=== PATIENT | male | born 1930 | race Caucasian/White ===

== ENCOUNTER 2017-05-31 14:36 | Inpatient (IN) | payer MEDICARE ==
[~2017-05-31] VITALS: Ht 179.1 cm; Wt 71.2 kg
[2017-05-31] MEDS ORDERED: ATOR10TA15 PO (15:24)
[2017-05-31] MEDS ORDERED: LOSA50TA2 PO (15:24)
[2017-05-31] MEDS ORDERED: GLUCTAB6 (15:25)
[2017-05-31] MEDS ORDERED: SODIUM CHLOR 0.9% 1000 ML INJ 1,000 ML IV SCH (15:25)
[2017-05-31] MEDS ORDERED: ASPI81CH CHEW (15:25)
[2017-05-31] MEDS ORDERED: OCUVTAB4 PO (15:25)
[2017-05-31] MEDS ORDERED: FINA5TAB2 PO (15:25)
[2017-05-31] MEDS ORDERED: TAMS0.4C4 PO (15:25)
[2017-05-31] MEDS ORDERED: PANTOPRAZOLE INJ 80 MG in SODIUM CHLORIDE 0.9% INJ 35 ML IV ONE (15:30)
[2017-05-31] MEDS ORDERED: SODIUM CHLORIDE 0.9% FLUSH 10 ML FLUSH IVF PRN (15:30)
--- NOTE | 2017-05-31 15:33 | PD ---
HPI Chief Complaint: GI Complaint Time Seen by Provider: 15:12 Travel History International Travel<30 days: No Contact w/Intl Traveler<30days: No Traveled to known affect area: No History of Present Illness HPI This 87-year-old male says he has noted some dark stools over the last few days. He's been having some frequent urination. He has been seeing Dr. Collins. He was recently started on finasteride. He has a history of a subtotal gastrectomy. He is not on any blood thinners. He denies any abdominal pain. He has not been feeling weak or dizzy. He does not use anti- inflammatory medication. He drinks a small glass of wine every other day PFSH Past Medical History ?: Not Social History Tobacco Use: No Allergies-Medications (Allergen,Severity, Reaction): Coded Allergies: Penicillin (Verified Allergy, Unknown, 05/31/17) Reported Meds & Prescriptions Reported Meds & Active Scripts Active Reported Glucosamine Chondroitin (Ywynjmyjssj-Vvbepwdixuz-Mmm C-) 1 Tab Tab Aspirin 81 Mg Chew 81 Mg CHEW DAILY Preservision Areds (Multiple Vitamins W/ Minerals) 1 Tab 1 Tab PO DAILY Finasteride 5 Mg Tab 5 Mg PO DAILY Do not crush. Tamsulosin (Tamsulosin HCl) 0.4 Mg Cap 0.4 Mg PO HS Atorvastatin (Atorvastatin Calcium) 10 Mg Tab 10 Mg PO HS Losartan-Hydrochlorothiazide 50-12.5 Mg Tab 1 Tab PO DAILY Review of Systems General / Constitutional: No: Fever, Chills Eyes: Positive: Blurred Vision (macular degeneration), No: Diploplia HENT: No: Headaches, Vertigo Cardiovascular: No: Chest Pain or Discomfort, Palpitations Respiratory: No: Cough, Shortness of Breath Gastrointestinal: Positive: Hematochezia, Changes in Bowel Habits, No: Nausea , Vomiting, Loss of Appetite Genitourinary: Positive: Frequency, Nocturia, No: Urgency Musculoskeletal: No: Myalgias, Arthralgias Skin: No Rash Neurologic: No: Weakness, Dizziness Hematologic/Lymphatic: No: Easy Bruising Physical Exam Narrative GENERAL: Well-developed male SKIN: Focused skin assessment warm/dry. HEAD: Atraumatic. Normocephalic. EYES: Pupils equal and round. No scleral icterus. No injection or drainage. ENT: No nasal bleeding or discharge. Mucous membranes pink and moist. NECK: Trachea midline. No JVD. CARDIOVASCULAR: Regular rate and rhythm. No murmur appreciated. RESPIRATORY: No accessory muscle use. Clear to auscultation. Breath sounds equal bilaterally. GASTROINTESTINAL: Abdomen soft, non-tender, nondistended. Hepatic and splenic margins not palpable. On rectal exam there are no masses. Stool is dark and guaiac positive MUSCULOSKELETAL: No obvious deformities. No clubbing. No cyanosis. No edema. NEUROLOGICAL: Awake and alert. No obvious cranial nerve deficits. Motor grossly within normal limits. Normal speech. PSYCHIATRIC: Appropriate mood and affect; insight and judgment normal. Data Data Orders Complete Blood Count With Diff (05/31/17 15:25) Comprehensive Metabolic Panel (05/31/17 15:25) Prothrombin Time / Inr (Pt) (05/31/17 15:25) Act Partial Throm Time (Ptt) (05/31/17 15:25) Urinalysis - C+S If Indicated (05/31/17 15:25) Type And Screen (05/31/17 15:25) Ecg Monitoring (05/31/17 15:25) Iv Access Insert/Monitor (05/31/17 15:25) Oximetry (05/31/17 15:25) Sodium Chlor 0.9% 1000 Ml Inj (Ns 1000 M (05/31/17 15:25) Sodium Chloride 0.9% Flush (Ns Flush) (05/31/17 15:30) Pantoprazole Inj (Protonix Inj) (05/31/17 15:30) Pantoprazole Inj (Protonix Inj) (05/31/17 15:30) MDM Medical Decision Making Medical Screen Exam Complete: Yes Emergency Medical Condition: Yes Medical Record Reviewed: Yes Differential Diagnosis Differential includes GI bleed, ulcer disease, gastritis Narrative Course Stool is black and guaiac positive. Diagnosis Primary Impression: GI bleed Pawan Villafana MD May 31, 2017 15:33
[2017-05-31 16:21] LABS: AUTOMATED NEUTROPHIL # 5.9 TH/MM3 (1.8-7.7); BASOPHIL % 0.4 % (0.0-2.0); EOSINOPHIL % 0.3 % (0.0-4.0); HEMATOCRIT 39.3 % (39.0-51.0); HEMO FLAGS DIFF FINAL; LYMPH % 19.6 % (9.0-44.0); LYMPHOCYTE # 1.5 TH/MM3 (1.0-4.8); MEAN CELL VOLUME 87.3 FL (80.0-100.0); MEAN CORPUSCULAR HEMOGLOBIN 28.7 PG (27.0-34.0); MEAN CORPUSCULAR HGB CONC 32.9 % (32.0-36.0); MONO % 6.8 % (0.0-8.0); NEUT % 72.9 % (16.0-70.0); PLATELET COUNT 159 TH/MM3 (150-450); RED BLOOD COUNT 4.49 MIL/MM3 (4.50-5.90); RED CELL DISTRIBUTION WIDTH 14.6 % (11.6-17.2); WHITE BLOOD COUNT 7.9 TH/MM3 (4.0-11.0)
[2017-05-31 16:36] LABS: CHLORIDE 107 MEQ/L (98-107); POTASSIUM 3.4 MEQ/L (3.5-5.1); SODIUM (NA) 142 MEQ/L (136-145)
[2017-05-31 16:40] LABS: APTT (PATIENT) 23.8 SEC (24.3-30.1); INTERNATIONAL NORMALIZED RATIO 0.9 RATIO; PROTHROMBIN TIME - PATIENT 10.2 SEC (9.8-11.6)
[2017-05-31 16:41] LABS: ANION GAP 7 MEQ/L (5-15); BICARBONATE 28.3 MEQ/L (21.0-32.0); BLOOD UREA NITROGEN 16 MG/DL (7-18)
[2017-05-31 16:44] LABS: ALT (GPT) 26 U/L (12-78); AST (GOT) 16 U/L (15-37); GLOMERULAR FILTRATION RATE 75 ML/MIN (>89)
[2017-05-31 16:46] LABS: TOTAL BILIRUBIN ADULT 1.6 MG/DL (0.2-1.0)
[2017-05-31 16:47] LABS: ALKALINE PHOSPHATASE 63 U/L (45-117)
[2017-05-31] MEDS: PANTOPRAZOLE INJ 80 MG in SODIUM CHLORIDE 0.9% INJ 100 ML IV SCH (16:54)
[2017-05-31 17:35] LABS: BLOOD, URINE NEG (NEG); GLUCOSE,URINE 100 mg/dL (NEG); KETONE, URINE NEG (NEG); NITRITE,URINE NEG (NEG); PH, URINE 5.5 (5.0-8.5)
--- NOTE | 2017-05-31 17:53 | PD ---
Data Data Orders Complete Blood Count With Diff (05/31/17 15:25) Comprehensive Metabolic Panel (05/31/17 15:25) Prothrombin Time / Inr (Pt) (05/31/17 15:25) Act Partial Throm Time (Ptt) (05/31/17 15:25) Urinalysis - C+S If Indicated (05/31/17 15:25) Type And Screen (05/31/17 15:25) Ecg Monitoring (05/31/17 15:25) Iv Access Insert/Monitor (05/31/17 15:) Oximetry (05/31/17 15:25) Sodium Chlor 0.9% 1000 Ml Inj (Ns 1000 M (05/31/17 15:25) Sodium Chloride 0.9% Flush (Ns Flush) (05/31/17 15:30) Pantoprazole Inj (Protonix Inj) (05/31/17 15:30) Pantoprazole Inj (Protonix Inj) (05/31/17 15:30) Labs Laboratory Tests Test 05/31/17 05/31/17 16:15 17:00 White Blood Count 7.9 TH/MM3 Red Blood Count 4.49 MIL/MM3 Hemoglobin 12.9 GM/DL Hematocrit 39.3 % Mean Corpuscular Volume 87.3 FL Mean Corpuscular Hemoglobin 28.7 PG Mean Corpuscular Hemoglobin 32.9 % Concent Red Cell Distribution Width 14.6 % Platelet Count 159 TH/MM3 Mean Platelet Volume 9.0 FL Neutrophils (%) (Auto) 72.9 % Lymphocytes (%) (Auto) 19.6 % Monocytes (%) (Auto) 6.8 % Eosinophils (%) (Auto) 0.3 % Basophils (%) (Auto) 0.4 % Neutrophils # (Auto) 5.9 TH/MM3 Lymphocytes # (Auto) 1.5 TH/MM3 Monocytes # (Auto) 0.5 TH/MM3 Eosinophils # (Auto) 0.0 TH/MM3 Basophils # (Auto) 0.0 TH/MM3 CBC Comment DIFF FINAL Differential Comment Prothrombin Time 10.2 SEC Prothromb Time International 0.9 RATIO Ratio Activated Partial 23.8 SEC Thromboplast Time Sodium Level 142 MEQ/L Potassium Level 3.4 MEQ/L Chloride Level 107 MEQ/L Carbon Dioxide Level 28.3 MEQ/L Anion Gap 7 MEQ/L Blood Urea Nitrogen 16 MG/DL Creatinine 0.95 MG/DL Estimat Glomerular Filtration 75 ML/MIN Rate Random Glucose 137 MG/DL Calcium Level 8.3 MG/DL Total Bilirubin 1.6 MG/DL Aspartate Amino Transf 16 U/L (AST/SGOT) Alanine Aminotransferase 26 U/L (ALT/SGPT) Alkaline Phosphatase 63 U/L Total Protein 6.7 GM/DL Albumin 3.4 GM/DL Urine pH 5.5 Urine Protein NEG mg/dL Urine Glucose (UA) 100 mg/dL Urine Ketones NEG mg/dL Urine Occult Blood NEG Urine Nitrite NEG Urine Bilirubin NEG Urine Leukocyte Esterase NEG MDM Supervised Visit with NIKOLAS: No Narrative Course Patient care assumed from Dr. Portillo at 1600. This is an 87-year-old male who appears well presents emergency department for evaluation of black tarry stools for the past week. Per Dr. Gonzales for large amount of guaiac positive black stool was observed on rectal exam per Dr. Portillo. Patient's counts are reassuring. He is not on anticoagulants. Discussed with the patient the ferry behind internal bleeding as we cannot tell when the bleeding stopped. I recommended for trending at a minimum. The patient is very high functioning and has plans for travel to [place] in 5 days and wonders if his treatment can be expedited. Knowing this save made a call to Dr. Alfredo who is willing to scope him in the morning after he is prepped tonight. Discussed with discussed with Dr. Louise who is agreeable for observation status. Diagnosis Primary Impression: GI bleed Admitting Information Admitting Physician Requests: Observation Condition: Stable Kwasi García MD May 31, 2017 17:53
[2017-05-31 17:54] LABS: COMMENT (UR) CULT NOT INDICATED; CULTURE IF INDICATED CULT NOT INDICATED; SQUAMOUS EPITHELIAL CELL URINE 0-5 /hpf (0-5); URINE COLOR YELLOW (YELLW/STRAW)
[2017-05-31] MEDS ORDERED: ACETAMINOPHEN 325 MG TAB PO PRN (18:00)
[2017-05-31] MEDS ORDERED: POTASSIUM PHOSPHATE INJ 30 MMOL in SODIUM CHLOR 0.9% 250 ML INJ 250 ML IV ONE (18:00)
[2017-05-31] MEDS ORDERED: ONDANSETRON HCL 4 MG/2 ML VIAL IVP PRN (18:00)
[2017-05-31 18:15] VITALS: BP 141/72; PULSE 60; O2SAT 99
[2017-05-31 19:11] VITALS: O2SAT 99
[2017-05-31 20:00] VITALS: BP 141/80; PULSE 60; RESP 20; TEMP 97.2; O2SAT 95
[2017-05-31 20:08] LABS: CHLORIDE 107 MEQ/L (98-107); POTASSIUM 3.4 MEQ/L (3.5-5.1); SODIUM (NA) 142 MEQ/L (136-145)
[2017-05-31 20:11] LABS: ANION GAP 8 MEQ/L (5-15); BLOOD UREA NITROGEN 14 MG/DL (7-18)
[2017-05-31 20:14] LABS: ALT (GPT) 23 U/L (12-78)
[2017-05-31 20:15] LABS: AST (GOT) 15 U/L (15-37); GLOMERULAR FILTRATION RATE 92 ML/MIN (>89)
[2017-05-31 20:16] LABS: TOTAL BILIRUBIN ADULT 1.4 MG/DL (0.2-1.0)
[2017-05-31 20:17] LABS: ALKALINE PHOSPHATASE 57 U/L (45-117)
[2017-05-31] MEDS: ATORVASTATIN 10 MG TAB PO SCH (23:42)
[2017-06-01] VITALS (18 sets, daily range): BP systolic 123–180; BP diastolic 67–102; PULSE 51–67; RESP 19–20; TEMP 96–98.5; O2SAT 91–99
[2017-06-01] MEDS: PANTOPRAZOLE INJ 80 MG in SODIUM CHLORIDE 0.9% INJ 100 ML IV SCH ×3 (02:18→21:30)
[2017-06-01 06:21] LABS: AUTOMATED NEUTROPHIL # 3.9 TH/MM3 (1.8-7.7); BASOPHIL % 0.1 % (0.0-2.0); EOSINOPHIL % 0.7 % (0.0-4.0); HEMO FLAGS DIFF FINAL; LYMPH % 29.8 % (9.0-44.0); LYMPHOCYTE # 1.9 TH/MM3 (1.0-4.8); MEAN CELL VOLUME 86.7 FL (80.0-100.0); MEAN CORPUSCULAR HEMOGLOBIN 28.7 PG (27.0-34.0); MEAN CORPUSCULAR HGB CONC 33.1 % (32.0-36.0); MONO % 8.5 % (0.0-8.0); NEUT % 60.9 % (16.0-70.0); PLATELET COUNT 122 TH/MM3 (150-450); RED BLOOD COUNT 3.69 MIL/MM3 (4.50-5.90); RED CELL DISTRIBUTION WIDTH 14.2 % (11.6-17.2); WHITE BLOOD COUNT 6.3 TH/MM3 (4.0-11.0)
[2017-06-01] MEDS ORDERED: PROPOFOL 200 MG/20 ML AMP IV ONE (07:40)
--- NOTE | 2017-06-01 08:18 | GIPROC ---
[facility] [address] [place] [address], [id number] EGD PROCEDURE REPORT EXAM DATE: 06/01/2017 PATIENT NAME: Preet Pena MR #: [id number] BIRTHDATE: 1930 ATTENDING: Jo Ann Renteria MD ORDER #: [id number] DIRECTOR SPECIAL EDUCATION: Geovanni Robles and Veda Kessler STATUS: inpatient INDICATIONS: The patient is a 87 yr old male here for an EGD due to anemia and melena PROCEDURE PERFORMED: EGD w/ control of bleeding MEDICATIONS: None and Per Anesthesia. TOPICAL ANESTHETIC: none CONSENT: The patient understands the risks and benefits of the procedure and understands that these risks include, but are not limited to: sedation, allergic reaction, infection, perforation and/or bleeding. Alternative means of evaluation and treatment include, among others: physical exam, x-rays, and/or surgical intervention. The patient elects to proceed with this endoscopic procedure. medical equipment was checked for proper function. Hand hygiene and appropriate measures for infection prevention was taken. After the risks, benefits and alternatives of the procedure were thoroughly explained, Informed consent was verified, confirmed and timeout was successfully executed by the treatment team. The patient was anesthetized with topical anesthesia and the Pentax [id number] endoscope was introduced through the mouth and advanced to the second portion of the duodenum. Retroflexed views revealed no abnormalities The gastroscope was then slowly withdrawn and removed. 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 The endoscopy was otherwise normal. ADVERSE EVENTS: There were no complications. IMPRESSIONS: 1. Anatomy C/W gastric bypass 2. 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 Normal endoscopy otherwise 4. Retroflexed views revealed no abnormalities RECOMMENDATIONS: 1. Anti-reflux regimen 2. Avoid NSAIDS 3. Follow H/H PATIENT CONDITION: stable DISPOSITION: Inpatient REPEAT EXAM: Return as needed for EGD if patient agrees and still anemic he will need colonoscopy and possible capsule endoscopy Jo Ann Renteria MD eSigned: Jo Ann Renteria MD 06/01/2017 8:18 AM cc:
[2017-06-01] MEDS: FINASTERIDE 5 MG TAB PO SCH (08:29)
[2017-06-01] MEDS: LOSARTAN 50 MG TAB PO SCH (08:29)
[2017-06-01] MEDS: HYDROCHLOROTHIAZIDE 12.5 MG CAP PO SCH (08:29)
[2017-06-01] MEDS ORDERED: NON-FORMULARY DRUG (Losartan-Hydrochlorothiazide 1 TAB) PO SCH (09:00)
--- NOTE | 2017-06-01 11:26 | EKG ---
Date Performed: 06/01/2017 Time Performed: 06:54:41 PTAGE: 87 years EKG: Normal Sinus rhythm Ventricular premature complexes Slight nonspecific intraventricular conduction delay Poor R-wave pro gression, cannot exclude old anteroseptal myocardial infarction The first degree AV block is new from the old tracing. PREVIOUS TRACING : 12/02/1998 15.15 DOCTOR: Malcolm Blank Interpretating Date/Time 06/01/2017 11:24:49
--- NOTE | 2017-06-01 14:05 | MB ---
cc: JAIRO SHORE M.D. DATE OF CONSULTATION 06/01/2017 DATE OF [address] Laya Louise REASON FOR REFERRAL Anemia, melena. Thank you for the consultation. This is a very pleasant 87-year-old gentleman who was in the ER because of significant dark stool over the last few days. The patient stated that he had black stool. He denies any bright red blood per rectum and he denied any other GI symptoms. He denied any dizziness, lightheaded. He had a colonoscopy many years ago and he had a subtotal gastrectomy at least 50 years ago. He denied any anti-inflammatory except aspirin. He has no other GI concerns. SOCIAL HISTORY Negative for tobacco. He drinks wine on a daily basis. ALLERGIES PENICILLIN REVIEW OF SYSTEMS All 12-points negative except HPI. MEDICATIONS Reviewed in the chart. REVIEW OF SYSTEMS All 12-points negative except HPI. PHYSICAL EXAMINATION Alert, oriented in no acute distress. VITAL SIGNS: Stable. HEENT: Pupils are round and reactive to light. NECK: Supple. CHEST: Clear to auscultation and percussion. CARDIAC: Regular rate and rhythm at this time. No murmur or gallop. ABDOMEN: Soft, nondistended, nontender. The patient has a midline surgical scar. RECTAL: Exam was performed in the ER so it was deferred, but according to the ER, no masses and dark stool positive for hemoccult. NEUROLOGIC: Alert, oriented x3 in no acute distress. No abnormality with "fine and gross movement. PSYCHOLOGIC: Psychologically appropriate. LABORATORY DATA White count 6.3, hemoglobin 10.6 today, yesterday was 12.9, platelets 122, INR 0.9. Liver function tests, total bilirubin 1.4, AST 15, ALT 23, alkaline phosphatase 57, albumin 3.1. ASSESSMENT/PLAN An 87-year-old gentleman with black tarry stool with anemia most likely upper GI bleed, could be peptic ulcer disease as he had anastomosis margin on AVM or even malignancy. I discussed with the patient doing upper endoscopy and he is agreeable to have it done. If this is negative, then the patient will need further evaluation with a capsule endoscopy and a colonoscopy that could be done as an outpatient. Meanwhile, we will continue supportive care and will make sure that the patient hemodynamically is stable and his hemoglobin is stable. MD DORA Olmstead /11:31 AM /1:08 PM
--- NOTE | 2017-06-01 14:06 | HHI.HP ---
[facility] Service [facility] Primary Care Physician Gary Darnell M.D. Admission Diagnosis GI bleeding Diagnoses: Chief Complaint: Bloody stools Travel History International Travel<30 Days: No Contact w/Intl Traveler <30 Da: No Traveled to Known Affected Are: No History of Present Illness Patient seen and evaluated in the ER due to CC of Dark stools and nausea for 3 days. 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 He takes a daily aspirin for "general health". He has not had any pain. he is now seen after GI eval and upper endoscopy. An AVM was cauterized. Hg has gone from 12.9 to 10.6 and the patient has seen more bloody stool this am. He is resting well. Review of Systems Constitutional: DENIES: Diaphoretic episodes, Fatigue, Fever, Weight gain, Weight loss, Chills, Dizziness, Change in appetite, Night Sweats Endocrine: DENIES: Heat/cold intolerance, Polydipsia, Polyuria, Polyphagia Eyes: DENIES: Blurred vision, Diplopia, Eye inflammation, Eye pain, Vision loss , Photosensitivity, Double Vision Ears, nose, mouth, throat: DENIES: Tinnitus, Hearing loss, Vertigo, Nasal discharge, Oral lesions, Throat pain, Hoarseness, Ear Pain, Running Nose, Epistaxis, Sinus Pain, Toothache, Odynophagia Respiratory: DENIES: Apneas, Cough, Snoring, Wheezing, Hemoptysis, Sputum production, Shortness of breath Cardiovascular: DENIES: Chest pain, Palpitations, Syncope, Dyspnea on Exertion , PND, Lower Extremity Edema, Orthopnea, Claudication Gastrointestinal: COMPLAINS OF: Black stools, DENIES: Abdominal pain, Bloody stools, Constipation, Diarrhea, Nausea, Vomiting, Difficulty Swallowing, Anorexia Musculoskeletal: COMPLAINS OF: Joint pain (OA), DENIES: Muscle aches, Stiffness, Joint Swelling, Back pain, Neck pain Integumentary: DENIES: Abnormal pigmentation, Nail changes, Pruritus, Rash Hematologic/lymphatic: DENIES: Bruising, Lymphadenopathy Immunologic/allergic: DENIES: Eczema, Urticaria Neurologic: DENIES: Abnormal gait, Headache, Localized weakness, Paresthesias, Seizures, Speech Problems, Tremor, Poor Balance Psychiatric: DENIES: Anxiety, Confusion, Mood changes, Depression, Hallucinations, Agitation, Suicidal Ideation, Homicidal Ideation, Delusions bloody stools Past Family Social History Past Medical History BPH HTN Hyperlipidemia Past Surgical History subtotal gastrectomy due to ulcers Appy Reported Medications Reviewed in the EMR, takes ASA for "health" Allergies: Coded Allergies: Penicillin (Verified Allergy, Unknown, 05/31/17) Active Ordered Medications reviewed in the EMR Family History Outlived everyone noncontributory Social History No tobacco or EToh lives with his Physical Exam Vital Signs Vital Signs Date Time Temp Pulse Resp B/P Pulse Ox O2 Delivery O2 Flow Rate FiO2 06/01/17 12:10 96.4 51 19 145/83 96 06/01/17 08:46 98.2 58 19 152/85 96 06/01/17 08:11 57 18 128/60 95 06/01/17 07:54 97.9 69 20 141/78 95 06/01/17 07:00 64 20 169/79 99 06/01/17 00:00 96.0 52 20 148/70 95 Automatic Cuff 05/31/17 20:00 97.2 60 20 141/80 95 05/31/17 19:11 99 05/31/17 18:15 60 141/72 99 Physical Exam GENERAL: This is a well-nourished, well-developed patient, calm, complaining of blood in stool this am SKIN: No rashes, ecchymoses or lesions. Cool and dry. HEAD: Atraumatic. Normocephalic. No temporal or scalp tenderness. EYES: Pupils equal round and reactive. Extraocular motions intact. No scleral icterus. No injection or drainage. ENT: Nose without bleeding, purulent drainage or septal hematoma. Throat without erythema, tonsillar hypertrophy or exudate. Uvula midline. Airway patent. NECK: Trachea midline. No JVD or lymphadenopathy. Supple, nontender, no meningeal signs. CARDIOVASCULAR: Regular rate and rhythm without murmurs, gallops, or rubs. RESPIRATORY: Clear to auscultation. Breath sounds equal bilaterally. No wheezes , rales, or rhonchi. GASTROINTESTINAL: Abdomen soft, non-tender, nondistended. No hepato-splenomegaly , or palpable masses. No guarding. MUSCULOSKELETAL: Extremities without clubbing, cyanosis, or edema. No joint tenderness, effusion, or edema noted. No calf tenderness. Negative Homans sign bilaterally. NEUROLOGICAL: Awake and alert. Cranial nerves II through XII intact. Motor and sensory grossly within normal limits. Five out of 5 muscle strength in all muscle groups. Normal speech. Laboratory Laboratory Tests Test 05/31/17 05/31/17 05/31/17 06/01/17 16:15 17:00 19:48 04:55 White Blood Count 7.9 6.3 Red Blood Count 4.49 3.69 Hemoglobin 12.9 10.6 Hematocrit 39.3 32.0 Mean Corpuscular Volume 87.3 86.7 Mean Corpuscular Hemoglobin 28.7 28.7 Mean Corpuscular Hemoglobin 32.9 33.1 Concent Red Cell Distribution Width 14.6 14.2 Platelet Count 159 122 Mean Platelet Volume 9.0 8.9 Neutrophils (%) (Auto) 72.9 60.9 Lymphocytes (%) (Auto) 19.6 29.8 Monocytes (%) (Auto) 6.8 8.5 Eosinophils (%) (Auto) 0.3 0.7 Basophils (%) (Auto) 0.4 0.1 Neutrophils # (Auto) 5.9 3.9 Lymphocytes # (Auto) 1.5 1.9 Monocytes # (Auto) 0.5 0.5 Eosinophils # (Auto) 0.0 0.0 Basophils # (Auto) 0.0 0.0 CBC Comment DIFF FINAL DIFF FINAL Differential Comment Prothrombin Time 10.2 Prothromb Time International 0.9 Ratio Activated Partial 23.8 Thromboplast Time Sodium Level 142 142 Potassium Level 3.4 3.4 Chloride Level 107 107 Carbon Dioxide Level 28.3 27.0 Anion Gap 7 8 Blood Urea Nitrogen 16 14 Creatinine 0.95 0.79 Estimat Glomerular Filtration 75 92 Rate Random Glucose 137 95 Calcium Level 8.3 8.7 Total Bilirubin 1.6 1.4 Aspartate Amino Transf 16 15 (AST/SGOT) Alanine Aminotransferase 26 23 (ALT/SGPT) Alkaline Phosphatase 63 57 Total Protein 6.7 6.0 Albumin 3.4 3.1 Blood Type O POSITIVE Antibody Screen NEGATIVE Blood Bank Comment Urine Color YELLOW Urine Turbidity CLEAR Urine pH 5.5 Urine Specific [place] 1.011 Urine Protein NEG Urine Glucose (UA) 100 Urine Ketones NEG Urine Occult Blood NEG Urine Nitrite NEG Urine Bilirubin NEG Urine Leukocyte Esterase NEG Urine Squamous Epithelial 0-5 Cells Microscopic Urinalysis Comment CULT NOT INDICATED Result Diagram: 06/01/17 0455 05/31/17 1948 Assessment and Plan Problem List: (1) GI bleed ICD Code: K92.2 Status: Acute Plan: with acute blood loss anemia follow HG and transfuse as needed s/p Upper endoscopy with AVM cauterized, monitor overnight on clears d/c aspirin (2) Hyperlipidemia ICD Code: E78.5 Status: Acute Plan: continue home statin (3) Macular degeneration ICD Code: H35.30 Status: Acute Plan: cont home vitamins (4) HTN (hypertension) ICD Code: I10 Status: Acute Plan: Controlled on home losartan/hctz (5) BPH (benign prostatic hyperplasia) ICD Code: N40.0 Status: Acute Plan: Continue finasteride, tamsulosin Code Status full code Discussed Condition With patient, KRISHNAD Daughter Physician Certification 2 Midnight Certification Type: Admission for Inpatient Services Order for Inpatient Services The services are ordered in accordance with Medicare regulations or non- Medicare payer requirements, as applicable. In the case of services not specified as inpatient-only, they are appropriately provided as inpatient services in accordance with the 2-midnight benchmark. Estimated LOS (days): 2 2 days is the estimated time the patient will need to remain in the hospital, assuming treatment plan goals are met and no additional complications. Post-Hospital Plan: Home Laya Louise MD Jun 01, 2017 14:06
[2017-06-01] MEDS ORDERED: FUROSEMIDE 20 MG/2 ML VIAL IV ONE (16:45)
[2017-06-01] MEDS ORDERED: SODIUM CHLOR 0.9% 250 ML INJ 250 ML IV ONE (16:45)
[2017-06-01 17:16] LABS: HEMATOCRIT 31.8 % (39.0-51.0); REVIEW FLAG FINAL
[2017-06-01] MEDS: MULTIVITAMINS/MINERALS THERAPEUTIC TAB PO SCH (18:48)
[2017-06-01] MEDS: ATORVASTATIN 10 MG TAB PO SCH (20:49)
[2017-06-01] MEDS: TAMSULOSIN HCL 0.4 MG CAP PO SCH (20:50)
[2017-06-02] VITALS (27 sets, daily range): BP systolic 130–195; BP diastolic 60–93; PULSE 53–92; RESP 8–26; TEMP 97.8–98.6; O2SAT 94–100
[2017-06-02 04:47] LABS: BASOPHIL % 0.3 % (0.0-2.0); EOSINOPHIL % 0.6 % (0.0-4.0); HEMO FLAGS DIFF FINAL; LYMPH % 30.4 % (9.0-44.0); LYMPHOCYTE # 2.5 TH/MM3 (1.0-4.8); MEAN CELL VOLUME 87.4 FL (80.0-100.0); MEAN CORPUSCULAR HEMOGLOBIN 28.6 PG (27.0-34.0); MEAN CORPUSCULAR HGB CONC 32.8 % (32.0-36.0); NEUT % 60.7 % (16.0-70.0); PLATELET COUNT 149 TH/MM3 (150-450); RED BLOOD COUNT 4.34 MIL/MM3 (4.50-5.90); RED CELL DISTRIBUTION WIDTH 13.8 % (11.6-17.2); WHITE BLOOD COUNT 8.2 TH/MM3 (4.0-11.0)
[2017-06-02] MEDS: PANTOPRAZOLE INJ 80 MG in SODIUM CHLORIDE 0.9% INJ 100 ML IV SCH ×2 (05:12→14:43)
[2017-06-02] MEDS ORDERED: PEG (High)/E-LYTE SOLN 4000 ML BTL PO ONE (08:00)
--- NOTE | 2017-06-02 09:25 | HHI.GIFU ---
Subjective Remarks feels well today, had bloody stool yesterday and was moved to ICU and received 1 u PRBC, doing well now no bleeding Objective Vitals I&O Vital Signs Date Time Temp Pulse Resp B/P Pulse Ox O2 Delivery O2 Flow Rate FiO2 06/02/17 08:00 98.3 64 16 144/69 99 06/02/17 07:49 98 Nasal Cannula 3.00 06/02/17 07:00 58 15 149/69 100 06/02/17 06:00 58 20 141/62 99 06/02/17 06:00 58 06/02/17 05:00 62 20 161/81 100 06/02/17 05:00 62 06/02/17 04:00 85 06/02/17 04:00 98.6 85 24 130/60 98 06/02/17 03:00 53 20 99 06/02/17 03:00 54 06/02/17 02:00 53 06/02/17 02:00 53 20 138/80 95 06/02/17 01:00 60 20 144/86 100 06/02/17 01:00 60 06/02/17 00:00 58 06/02/17 00:00 97.8 58 20 140/80 99 06/01/17 23:00 60 06/01/17 23:00 60 20 144/70 97 06/01/17 22:05 98.2 58 20 153/87 99 06/01/17 22:00 58 20 147/69 99 06/01/17 22:00 58 06/01/17 21:00 60 20 180/98 91 06/01/17 21:00 60 06/01/17 20:45 58 20 153/74 99 06/01/17 20:30 58 20 143/70 99 06/01/17 20:15 98.4 60 20 160/75 98 06/01/17 20:00 97.5 67 20 146/102 97 06/01/17 20:00 63 06/01/17 20:00 97.5 67 20 158/72 97 06/01/17 19:45 99 Nasal Cannula 3.00 06/01/17 19:30 98.5 62 20 153/68 99 06/01/17 19:00 64 06/01/17 18:25 06/01/17 18:21 98.4 66 20 156/88 97 Manual Cuff/Auscultation 06/01/17 18:00 63 06/01/17 16:18 97.3 53 19 123/67 96 06/01/17 12:10 96.4 51 19 145/83 96 I/O 06/01/17 06/01/17 06/01/17 06/02/17 06/02/17 06/02/17 07:00 15:00 23:00 07:00 15:00 23:00 Intake Total 750 ml 1250 ml 895 ml Output Total 525 ml 200 ml 2050 ml Balance 225 ml 1050 ml -1155 ml Intake Oral 0 ml 1250 ml 400 ml IV Total 750 ml 170 ml Packed Cells 325 ml Output Urine Total 525 ml 200 ml 2050 ml Emesis 0 ml # Voids 2 6 # Bowel Movements 0 2 0 Laboratory Laboratory Tests Test 06/01/17 06/01/17 06/01/17 06/02/17 16:41 17:05 17:15 04:15 Blood Type O POSITIVE O POSITIVE Crossmatch Leukocyte-Reduced Red Blood Cells Blood Bank Comment Hemoglobin 10.5 12.4 Hematocrit 31.8 38.0 White Blood Count 8.2 Red Blood Count 4.34 Mean Corpuscular Volume 87.4 Mean Corpuscular Hemoglobin 28.6 Mean Corpuscular Hemoglobin 32.8 Concent Red Cell Distribution Width 13.8 Platelet Count 149 Mean Platelet Volume 8.3 Neutrophils (%) (Auto) 60.7 Lymphocytes (%) (Auto) 30.4 Monocytes (%) (Auto) 8.0 Eosinophils (%) (Auto) 0.6 Basophils (%) (Auto) 0.3 Neutrophils # (Auto) 5.0 Lymphocytes # (Auto) 2.5 Monocytes # (Auto) 0.7 Eosinophils # (Auto) 0.0 Basophils # (Auto) 0.0 CBC Comment DIFF FINAL Differential Comment Physical Exam HEENT: Pupils round and reactive to light; normocephalic; atraumatic; no jaundice. Throat is clear. NECK: Neck is supple, no JVD, no lymphadenopathy. CHEST: Chest is clear to auscultation and percussion. CARDIAC: Regular rate and rhythm with no murmur gallop or rubs. ABDOMEN: Soft, nondistended, nontender; no hepatosplenomegaly; bowel sounds are present in all four quadrants. EXTREMITIES: No clubbing, cyanosis, or edema. SKIN: Normal; no rash; no jaundice. MIXER OPERATOR: No focal deficits; alert and oriented times three. Assessment and Plan Plan GI bleed had AVM in stomach yesterday that was ablated with heat. had bloody stool but HGB stable, most likely old blood. today he will get enteroscopy and colonoscopy continue monitor HH. if neg colon/entroscopy and no more bleed, patient can be DC from GI stand Jo Ann Renteria MD Jun 02, 2017 09:25
[2017-06-02] MEDS ORDERED: LABETALOL HCL 100 MG/20 ML VIAL IV PUSH PRN (11:45)
--- NOTE | 2017-06-02 15:10 | HHI.PR ---
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 Currently nothing by mouth pending arthroscopy with colonoscopy. Family by the bedside Objective Vitals Vital Signs Date Time Temp Pulse Resp B/P Pulse Ox O2 Delivery O2 Flow Rate FiO2 06/02/17 13:00 62 18 158/72 100 06/02/17 12:00 98.2 60 17 157/72 100 06/02/17 12:00 60 06/02/17 11:00 60 18 170/75 100 06/02/17 10:00 72 06/02/17 10:00 74 26 155/65 94 06/02/17 09:00 66 25 94 06/02/17 08:00 58 06/02/17 08:00 98.3 64 16 144/69 99 06/02/17 07:49 98 Nasal Cannula 3.00 06/02/17 07:00 58 15 149/69 100 06/02/17 06:00 58 20 141/62 99 06/02/17 06:00 58 06/02/17 05:00 62 20 161/81 100 06/02/17 05:00 62 06/02/17 04:00 85 06/02/17 04:00 98.6 85 24 130/60 98 06/02/17 03:00 53 20 99 06/02/17 03:00 54 06/02/17 02:00 53 06/02/17 02:00 53 20 138/80 95 06/02/17 01:00 60 20 144/86 100 06/02/17 01:00 60 06/02/17 00:00 58 06/02/17 00:00 97.8 58 20 140/80 99 06/01/17 23:00 60 06/01/17 23:00 60 20 144/70 97 06/01/17 22:05 98.2 58 20 153/87 99 06/01/17 22:00 58 20 147/69 99 06/01/17 22:00 58 06/01/17 21:00 60 20 180/98 91 06/01/17 21:00 60 06/01/17 20:45 58 20 153/74 99 06/01/17 20:30 58 20 143/70 99 06/01/17 20:15 98.4 60 20 160/75 98 06/01/17 20:00 97.5 67 20 146/102 97 06/01/17 20:00 63 06/01/17 20:00 97.5 67 20 158/72 97 06/01/17 19:45 99 Nasal Cannula 3.00 06/01/17 19:30 98.5 62 20 153/68 99 06/01/17 19:00 64 06/01/17 18:25 06/01/17 18:21 98.4 66 20 156/88 97 Manual Cuff/Auscultation 06/01/17 18:00 63 06/01/17 16:18 97.3 53 19 123/67 96 I/O 06/01/17 06/01/17 06/01/17 06/02/17 06/02/17 06/02/17 07:00 15:00 23:00 07:00 15:00 23:00 Intake Total 750 ml 1250 ml 895 ml 3956 ml Output Total 525 ml 200 ml 2050 ml Balance 225 ml 1050 ml -1155 ml 3956 ml Intake Oral 0 ml 1250 ml 400 ml 3700 ml IV Total 750 ml 170 ml 256 ml Packed Cells 325 ml Output Urine Total 525 ml 200 ml 2050 ml Emesis 0 ml # Voids 2 6 3 # Bowel Movements 0 2 0 10 Result Diagram: 06/02/17 0415 05/31/171947 Objective Remarks GENERAL: NAD SKIN: Warm and dry. HEAD: Normocephalic. EYES: No scleral icterus. No injection or drainage. NECK: Supple, trachea midline. No JVD or lymphadenopathy. CARDIOVASCULAR: Regular rate and rhythm without murmurs, gallops, or rubs. RESPIRATORY: Breath sounds equal bilaterally. No accessory muscle use. GASTROINTESTINAL: Abdomen soft, non-tender, nondistended. MUSCULOSKELETAL: No cyanosis, or edema. BACK: Nontender without obvious deformity. No CVA tenderness. 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
[2017-06-02] MEDS ORDERED: EPINEPHrine HCL (1:1000) 1 MG/ML VIAL OTHER ONE (15:40)
[2017-06-02] MEDS ORDERED: PROPOFOL 200 MG/20 ML AMP IV ONE (16:04)
--- NOTE | 2017-06-02 16:08 | GIPROC ---
[facility] [address] [place] [address], [id number] COLONOSCOPY PROCEDURE REPORT EXAM DATE: 06/02/2017 PATIENT NAME: Preet Pena MR #: [id number] BIRTHDATE: 1930 ENDOSCOPIST: Karen Rossi MD ORDER #: [id number] RESEARCH PROFESSOR OF BIOSTATISTICS: Kori Tapia and Dodie Anthony STATUS: inpatient INDICATIONS: The patient is a 87 yr old male here for a colonoscopy due to iron deficiency anemia and hematochezia PROCEDURE PERFORMED: Colonoscopy with ablation MEDICATIONS: None and Per Anesthesia. PREP QUALITY: The [place] Bowel Prep Score was Right colon 2, Mid colon 3, and Left colon 3. Total = 8. PREP TYPE:GoLytely ESTIMATED BLOOD LOSS: None CONSENT: The patient understands the risks and benefits of the procedure and understands that these risks include, but are not limited to: sedation, allergic reaction, infection, perforation and/or bleeding. Alternative means of evaluation and treatment include, among others: physical exam, x-rays, and/or surgical intervention. The patient elects to proceed with this endoscopic procedure. medical equipment was checked for proper function. Hand hygiene and appropriate measures for infection prevention was taken. After the risks, benefits and alternatives of the procedure were thoroughly explained, Informed consent was verified, confirmed and timeout was successfully executed by the treatment team. A digital exam revealed external hemorrhoids The Pentax EC-[id number] endoscope was introduced through the anus and advanced to the cecum, which was identified by both the appendix and ileocecal valve. The instrument was then slowly withdrawn as the colon was fully examined. COLON FINDINGS: Severe diverticulosis was noted throughout the entire examined colon. No bleeding was noted from the diverticulosis. Three polypoid shaped sessile polyps ranging between 5-9mm in size were found at the cecum. A polypectomy was performed using snare cautery. The resection was incomplete and the polyp tissue was completely retrieved. Multiple biopsies were performed using cold forceps. Thermal therapy was used to destroy tumor/mass. Five polypoid shaped semi-pedunculated polyps ranging between 5-9mm in size were found in the transverse colon. A polypectomy was performed using snare cautery and with cold forceps. The resection was incomplete and the polyp tissue was completely retrieved. Retroflexed views revealed internal hemorrhoids and Retroflexed views revealed medium internal hemorrhoids The scope was then completely withdrawn from the patient and the procedure terminated. PROCEDURE WITHDRAWAL TIME:15minutes ADVERSE EVENTS: There were no complications. IMPRESSIONS: 1. Severe diverticulosis was noted throughout the entire examined colon 2. Three sessile polyps ranging between 5-9mm in size were found at the cecum; polypectomy was performed using snare cautery; multiple biopsies were performed using cold forceps 3. Five semi-pedunculated polyps ranging between 5-9mm in size were found in the transverse colon; polypectomy was performed using snare cautery and with cold forceps 4. Retroflexed views revealed internal hemorrhoids 5. Retroflexed views revealed medium internal hemorrhoids 6. Revealed external hemorrhoids RECOMMENDATIONS: 1. Await biopsy results. Biopsy results will not be ready for 7-10 days. If you don't hear from us in two weeks, call our office for results. 2. Continue surveillance 3. Yearly hemoccult 4. No treatment 5. No seeds, nuts and popcorn in diet RECALL: Return 3 months Colonoscopy, pending biopsy results Karen Rossi MD eSigned: Karen Rossi MD 06/02/2017 4:07 PM cc: PATIENT NAME: Preet Pena MR#: [id number]
--- NOTE | 2017-06-02 16:11 | GIPROC ---
[facility] [address] [place] [address], [id number] EGD PROCEDURE REPORT EXAM DATE: 06/02/2017 PATIENT NAME: Preet Pena MR #: [id number] BIRTHDATE: 1930 ATTENDING: Karen Rossi MD ORDER #: [id number] CLOTHER IN: Kori Tapia and Dodie Anthony STATUS: inpatient INDICATIONS: The patient is a 87 yr old male here for an EGD due to acute post hemorrhagic anemia PROCEDURE PERFORMED: EGD w/ ablation EGD w/ directed submucosal injection(s), any substance MEDICATIONS: None and Per Anesthesia. TOPICAL ANESTHETIC: CONSENT: The patient understands the risks and benefits of the procedure and understands that these risks include, but are not limited to: sedation, allergic reaction, infection, perforation and/or bleeding. Alternative means of evaluation and treatment include, among others: physical exam, x-rays, and/or surgical intervention. The patient elects to proceed with this endoscopic procedure. medical equipment was checked for proper function. Hand hygiene and appropriate measures for infection prevention was taken. After the risks, benefits and alternatives of the procedure were thoroughly explained, Informed consent was verified, confirmed and timeout was successfully executed by the treatment team. The patient was anesthetized with topical anesthesia and the EC-[id number] (Pedi C) endoscope was introduced through the mouth and advanced to the third portion of the duodenum. Retroflexed views revealed no abnormalities The gastroscope was then slowly withdrawn and removed. ESOPHAGUS: The mucosa of the esophagus appeared normal. STOMACH: A single bleeding and deep ulcer ranging between 5-9mm in size with surrounding edema, a visible vessel and active oozing of blood was found in the gastric body. Bipolar (BICAP) cautery with a 10Fr probe was applied to the site for 10 secs using 15 fishman power. Moderate pressure was applied to the cautery site with complete hemostasis achieved. Submucosal injection of 3ml of epinephrine 1:10,000 was performed around the bleeding site with good treatment effect. Gastric bypass surgery. DUODENUM: The duodenal mucosa appeared normal in the 4th part of the duodenum. ADVERSE EVENTS: There were no complications. IMPRESSIONS: 1. The esophagus appeared normal 2. Single ulcer ranging between 5-9mm in size was found in the gastric body; Bipolar (BICAP) cautery with a 10Fr probe was applied to the site for 10 secs; with complete hemostasis achieved; Submucosal injection of 3ml of epinephrine 1:10,000 was performed around the bleeding site 3. Gastric bypass surgery 4. Normal duodenal mucosa in the 4th part of the duodenum 5. Retroflexed views revealed no abnormalities RECOMMENDATIONS: 1. Anti-reflux regimen 2. Continue PPI 3. Avoid NSAIDS 4. ICU monitoring PATIENT CONDITION: stable DISPOSITION: Inpatient REPEAT EXAM: Return as needed for EGD Karen Rossi MD eSigned: Karen Rossi MD 06/02/2017 4:11 PM cc: PATIENT NAME: Preet Pena MR#: [id number]
--- NOTE | 2017-06-02 16:21 | HHI.PR ---
Addendum to Inpatient Note Addendum Reason: Additional Documentation Additional Information Case discussed with Dr. Rossi and recommended continue ICU monitoring, type and screen. In the event of overnight GI bleed, patient should be transferred to [facility] Sean Longoria MD Jun 02, 2017 16:21
[2017-06-02] MEDS: MULTIVITAMINS/MINERALS THERAPEUTIC TAB PO SCH (17:51)
[2017-06-02] MEDS: HYDROCHLOROTHIAZIDE 12.5 MG CAP PO SCH (17:52)
[2017-06-02] MEDS: LOSARTAN 50 MG TAB PO SCH (17:52)
[2017-06-02] MEDS: FINASTERIDE 5 MG TAB PO SCH (17:52)
[2017-06-02] MEDS: TAMSULOSIN HCL 0.4 MG CAP PO SCH (19:47)
[2017-06-02] MEDS: ATORVASTATIN 10 MG TAB PO SCH (19:47)
[2017-06-03] VITALS (18 sets, daily range): BP systolic 106–156; BP diastolic 55–79; PULSE 72–88; RESP 15–35; TEMP 98.3–98.8; O2SAT 91–96
[2017-06-03] MEDS: PANTOPRAZOLE INJ 80 MG in SODIUM CHLORIDE 0.9% INJ 100 ML IV SCH ×2 (02:34→12:10)
[2017-06-03 07:42] LABS: AUTOMATED NEUTROPHIL # 14.4 TH/MM3 (1.8-7.7); HEMATOCRIT 37.7 % (39.0-51.0); LYMPH % 7.9 % (9.0-44.0); LYMPHOCYTE # 1.3 TH/MM3 (1.0-4.8); MEAN CELL VOLUME 87.1 FL (80.0-100.0); MEAN CORPUSCULAR HEMOGLOBIN 28.3 PG (27.0-34.0); MEAN CORPUSCULAR HGB CONC 32.4 % (32.0-36.0); MONO % 6.5 % (0.0-8.0); NEUT % 85.6 % (16.0-70.0); PLATELET COUNT 157 TH/MM3 (150-450); RED BLOOD COUNT 4.32 MIL/MM3 (4.50-5.90); RED CELL DISTRIBUTION WIDTH 13.8 % (11.6-17.2); WHITE BLOOD COUNT 16.8 TH/MM3 (4.0-11.0)
[2017-06-03 07:51] LABS: HEMO FLAGS AUTO DIFF
[2017-06-03 08:21] LABS: SCAN/DIFF AUTO DIFF CONFIRMED
[2017-06-03] MEDS: HYDROCHLOROTHIAZIDE 12.5 MG CAP PO SCH (09:32)
[2017-06-03] MEDS: FINASTERIDE 5 MG TAB PO SCH (09:32)
[2017-06-03] MEDS: MULTIVITAMINS/MINERALS THERAPEUTIC TAB PO SCH (09:32)
[2017-06-03] MEDS: LOSARTAN 50 MG TAB PO SCH (09:33)
--- NOTE | 2017-06-03 13:52 | HHI.PR ---
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 Currently nothing by mouth pending arthroscopy with colonoscopy. Family by the bedside 06/03/17-patient seen and examined; stable and no blood in his BMs this morning ; status post enteroscopy with colonoscopy yesterday. H&H stable. Objective Vitals Vital Signs Date Time Temp Pulse Resp B/P Pulse Ox O2 Delivery O2 Flow Rate FiO2 06/03/17 06:00 78 06/03/17 06:00 78 17 130/66 91 06/03/17 05:00 78 17 124/64 95 06/03/17 04:00 98.3 86 35 156/79 96 06/03/17 04:00 86 06/03/17 03:00 80 18 118/66 94 06/03/17 02:00 82 18 135/78 96 06/03/17 02:00 82 06/03/17 01:00 88 18 147/77 95 06/03/17 00:00 86 06/03/17 00:00 98.6 86 18 140/75 96 06/02/17 23:00 86 21 156/73 95 06/02/17 22:00 80 22 149/71 98 06/02/17 22:00 80 06/02/17 21:00 72 8 161/79 98 06/02/17 20:00 72 06/02/17 20:00 98.0 72 17 159/72 99 06/02/17 19:03 92 25 140/66 99 06/02/17 18:03 70 25 195/79 97 06/02/17 18:03 70 06/02/17 18:00 68 21 188/93 98 06/02/17 18:00 68 06/02/17 17:39 73 18 165/83 99 06/02/17 17:15 98.2 72 15 151/74 97 06/02/17 16:48 72 15 151/74 97 06/02/17 16:18 71 16 149/69 96 06/02/17 15:48 98.2 74 18 141/72 95 06/02/17 15:08 148/69 06/02/17 15:00 68 26 150/78 98 06/02/17 14:00 64 22 149/72 99 06/02/17 14:00 64 I/O 06/02/17 06/02/17 06/02/17 06/03/17 06/03/17 06/03/17 07:00 15:00 23:00 07:00 15:00 23:00 Intake Total 895 ml 3956 ml 149 ml 80 ml Output Total 2050 ml 500 ml 1050 ml Balance -1155 ml 3956 ml -351 ml -970 ml Intake Oral 400 ml 3700 ml IV Total 170 ml 256 ml 49 ml 80 ml Packed Cells 325 ml Other 100 ml Output Urine Total 2050 ml 500 ml 1050 ml Emesis 0 ml # Voids 3 # Bowel Movements 0 10 Result Diagram: 06/03/17 0546 05/31/171947 Objective Remarks GENERAL: NAD SKIN: Warm and dry. HEAD: Normocephalic. EYES: No scleral icterus. No injection or drainage. NECK: Supple, trachea midline. No JVD or lymphadenopathy. CARDIOVASCULAR: Regular rate and rhythm without murmurs, gallops, or rubs. RESPIRATORY: Breath sounds equal bilaterally. No accessory muscle use. GASTROINTESTINAL: Abdomen soft, non-tender, nondistended. MUSCULOSKELETAL: No cyanosis, or edema. BACK: Nontender without obvious deformity. No CVA tenderness. 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
[2017-06-03] MEDS ORDERED: PROT40TA PO (13:54)
--- NOTE | 2017-06-03 13:57 | HHI.DS ---
Discharge Summary Admission Date May 31, 2017 at 17:55 Discharge Date: Jun 03, 2017 Admitting Diagnosis GI bleeding (1) GI bleed ICD Code: K92.2 (2) Hyperlipidemia ICD Code: E78.5 (3) Macular degeneration ICD Code: H35.30 (4) HTN (hypertension) ICD Code: I10 (5) BPH (benign prostatic hyperplasia) ICD Code: N40.0 Procedures none Brief History - From Admission Patient seen and evaluated in the ER due to CC of Dark stools and nausea for 3 days. 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 He takes a daily aspirin for "general health". He has not had any pain. he is now seen after GI eval and upper endoscopy. An AVM was cauterized. Hg has gone from 12.9 to 10.6 and the patient has seen more bloody stool this am. He is resting well. CBC/BMP: 06/03/17 0546 05/31/171947 Significant Findings Laboratory Tests Test 05/31/17 05/31/17 05/31/17 06/01/17 16:15 17:00 19:48 04:55 Red Blood Count 4.49 MIL/MM3 3.69 MIL/MM3 (4.50-5.90) (4.50-5.90) Hemoglobin 12.9 GM/DL 10.6 GM/DL (13.0-17.0) (13.0-17.0) Neutrophils (%) (Auto) 72.9 % (16.0-70.0) Activated Partial 23.8 SEC Thromboplast Time (24.3-30.1) Potassium Level 3.4 MEQ/L 3.4 MEQ/L (3.5-5.1) (3.5-5.1) Estimat Glomerular Filtration 75 ML/MIN (>89) Rate Random Glucose 137 MG/DL (74-106) Calcium Level 8.3 MG/DL (8.5-10.1) Total Bilirubin 1.6 MG/DL 1.4 MG/DL (0.2-1.0) (0.2-1.0) Urine Glucose (UA) 100 mg/dL (NEG) Total Protein 6.0 GM/DL (6.4-8.2) Albumin 3.1 GM/DL (3.4-5.0) Hematocrit 32.0 % (39.0-51.0) Platelet Count 122 TH/MM3 (150-450) Monocytes (%) (Auto) 8.5 % (0.0-8.0) Test 06/01/17 06/02/17 06/03/17 17:05 04:15 05:46 Hemoglobin 10.5 GM/DL 12.4 GM/DL 12.2 GM/DL (13.0-17.0) (13.0-17.0) (13.0-17.0) Hematocrit 31.8 % 38.0 % 37.7 % (39.0-51.0) (39.0-51.0) (39.0-51.0) Red Blood Count 4.34 MIL/MM3 4.32 MIL/MM3 (4.50-5.90) (4.50-5.90) Platelet Count 149 TH/MM3 (150-450) White Blood Count 16.8 TH/MM3 (4.0-11.0) Neutrophils (%) (Auto) 85.6 % (16.0-70.0) Lymphocytes (%) (Auto) 7.9 % (9.0-44.0) Neutrophils # (Auto) 14.4 TH/MM3 (1.8-7.7) Monocytes # (Auto) 1.1 TH/MM3 (0-0.9) PE at Discharge GENERAL: NAD SKIN: Warm and dry. HEAD: Normocephalic. EYES: No scleral icterus. No injection or drainage. NECK: Supple, trachea midline. No JVD or lymphadenopathy. CARDIOVASCULAR: Regular rate and rhythm without murmurs, gallops, or rubs. RESPIRATORY: Breath sounds equal bilaterally. No accessory muscle use. GASTROINTESTINAL: Abdomen soft, non-tender, nondistended. MUSCULOSKELETAL: No cyanosis, or edema. BACK: Nontender without obvious deformity. No CVA tenderness. Hospital Course Patient admitted secondary to GI bleed for which gastroenterology was consulted and patient underwent EGD, enteroscopy and colonoscopy. He was initially started on PPI drip with serial monitor H&H. Treatment for other chronic medical conditions were resumed. Patient vitals were monitored and prior to discharge, his conditions improved. He was advised not to use any NSAIDs, and continue Protonix by mouth. Pt Condition on Discharge: Stable Discharge Disposition: Discharge Home Discharge Time: <= 30 minutes Discharge Instructions DIET: Follow Instructions for: Heart Healthy Diet Activities you can perform: Regular-No Restrictions Follow up Referrals: Gastroenterology PCP Follow-up - 1 Week New Medications: Pantoprazole (Protonix) 40 Mg Tab 40 MG PO DAILY Reflux #30 Ref 3 TAB Continued Medications: Aspirin (Aspirin) 81 Mg Chew 81 MG CHEW DAILY Ref 0 TAB Atorvastatin (Atorvastatin) 10 Mg Tab 10 MG PO HS Cholesterol Management #30 Ref 0 TAB Finasteride (Finasteride) 5 Mg Tab 5 MG PO DAILY Do not crush. Manage Prostate Problems #30 Ref 0 TAB Jspwldmwqza-Bqaxefyqjnx-Yit C- (Glucosamine Chondroitin) 1 Tab Tab Losartan-Hydrochlorothiazide (Losartan-Hydrochlorothiazide) 50-12.5 Mg Tab 1 TAB PO DAILY Blood Pressure Management #30 Ref 0 TAB Multiple Vitamins W/ Minerals (Preservision Areds) 1 Tab 1 TAB PO DAILY Nutritional Supplement Ref 0 TAB Tamsulosin (Tamsulosin) 0.4 Mg Cap 0.4 MG PO HS Manage Prostate Problems #30 Ref 0 CAP Sean Longoria MD Jun 03, 2017 13:57
== END 2017-06-03 14:45 | disposition home or self-care (01) | DRG 378 ==
LOC: PHED 14:36 → PHEDA 17:55 → PH3A 18:58 → PHICU 06-01 17:56 → PH3B 06-02 15:35 → PHICU 06-02 15:35
PROVIDERS: ADMIT Hospitalist; ATTEND Hospitalist
PROC: 30233N1 Transfusion of Nonautologous Red Blood Cells into Peripheral Vein, Percutaneous Approach (ICD-10-PCS; 2017-06-01)
PROC: 0W3P8ZZ Control Bleeding in Gastrointestinal Tract, Via Natural or Artificial Opening Endoscopic (ICD-10-PCS; principal; 2017-06-01 07:00)
PROC: 0DBH8ZZ Excision of Cecum, Via Natural or Artificial Opening Endoscopic (ICD-10-PCS; 2017-06-02)
PROC: 0DBL8ZZ Excision of Transverse Colon, Via Natural or Artificial Opening Endoscopic (ICD-10-PCS; 2017-06-02)
PROC: 0W3P8ZZ Control Bleeding in Gastrointestinal Tract, Via Natural or Artificial Opening Endoscopic (ICD-10-PCS; 2017-06-02 15:20)
DX: K31.811 Angiodysplasia of stomach and duodenum with bleeding (principal); D62 Acute posthemorrhagic anemia; I10 Essential (primary) hypertension; E78.5 Hyperlipidemia, unspecified; H35.30 Unspecified macular degeneration; N40.0 Benign prostatic hyperplasia without lower urinary tract symptoms; N40.1 Benign prostatic hyperplasia with lower urinary tract symptoms; R35.0 Frequency of micturition; K57.30 Diverticulosis of large intestine without perforation or abscess without bleeding; K63.5 Polyp of colon; K64.4 Residual hemorrhoidal skin tags; K64.8 Other hemorrhoids; K25.4 Chronic or unspecified gastric ulcer with hemorrhage; Z88.0 Allergy status to penicillin; Z90.3 Acquired absence of stomach [part of]
CPT/HCPCS: 36430; 80053; 81001; 85014; 85018; 85025; 85610; 85730; 86850; 86900; 86901; 86920; 88305; 93005; 96365; C9113; J0171; J1940; J7030; J7050; P9016